=== PATIENT | female | born 1980 | race Caucasian/White ===

== ENCOUNTER → 2023-01-21 16:45 | Outpatient (CLI) | payer OTHER, MEDICAID, SELFPAY ==
[2023-01-21 18:12] LABS: Appearance Urine UA CLEAR; Bilirubin Urine UA NEGATIVE (NEGATIVE); Color Urine UA YELLOW; Glucose Urine UA NEGATIVE (Negative); Ketones Urine UA NEGATIVE (NEGATIVE); Leukocyte Esterase Urine UA NEGATIVE (NEGATIVE); Nitrite Urine UA NEGATIVE (Negative); Occult Blood Urine UA NEGATIVE (Negative); Protein Urine UA NEGATIVE (Negative); Urobilinogen Urine UA 0.2 E.U./dL (0.2)
[2023-01-21 18:17] LABS: pH Urine UA 6.5 (4.5-8.0)
[2023-01-21 18:21] LABS: Bacteria Urine None Seen; Culture Indicated Urine Cult Not Indicated; RBC Urine 0-1/HPF (0-5/HPF); Squamous Epithelial Cell Urine 0-1 /HPF (0-5/HPF); WBC Urine None Seen (0-5/HPF)
== END ==
PROVIDERS: Referring Provider Family Medicine; Visit Provider Family Medicine
DX: O26.899 Other specified pregnancy related conditions, unspecified trimester (principal); R30.0 Dysuria
CPT/HCPCS: 81001

== ENCOUNTER → 2023-02-16 13:16 | Outpatient (CLI) | payer OTHER, MEDICAID, SELFPAY ==
[2023-02-16 17:48] LABS: GTT (PREG) 1 Hour PP 50gm Dose 112 mg/dL (76-139)
[2023-02-16 19:30] LABS: Urine N gonorrhoeae NOT DETECTED
[2023-02-16 19:32] LABS: Urine Chlamydia NOT DETECTED
[2023-02-17 09:46] LABS: Varicella IgG Antibody 325 index (Immune >165)
== END ==
LOC: LAB 13:17
PROVIDERS: PCP Family Medicine; Referring Provider Family Medicine; Visit Provider Family Medicine
DX: Z36.9 Encounter for antenatal screening, unspecified (principal); Z34.80 Encounter for supervision of other normal pregnancy, unspecified trimester; Z34.01 Encounter for supervision of normal first pregnancy, first trimester
CPT/HCPCS: 36415; 82950; 86787; 87077; 87086; 87147; 87491; 87591

== ENCOUNTER 2023-03-08 10:19 | Outpatient (CLI) | payer OTHER, MEDICAID, SELFPAY ==
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
[2023-03-08 11:57] LABS: Appearance Urine UA CLEAR; Bilirubin Urine UA NEGATIVE (NEGATIVE); Color Urine UA YELLOW; Glucose Urine UA NEGATIVE (Negative); Ketones Urine UA TRACE (NEGATIVE); Leukocyte Esterase Urine UA TRACE (NEGATIVE); Nitrite Urine UA NEGATIVE (Negative); Occult Blood Urine UA NEGATIVE (Negative); Protein Urine UA NEGATIVE (Negative); Urobilinogen Urine UA 0.2 E.U./dL (0.2)
[2023-03-08 12:02] LABS: Bacteria Urine Few (2-10); RBC Urine 0-1/HPF (0-5/HPF); WBC Urine 1-5/HPF (0-5/HPF)
[2023-03-08 12:03] LABS: Culture Indicated Urine Specimen Cultured; Squamous Epithelial Cell Urine 1-5 /HPF (0-5/HPF)
--- NOTE | 2023-04-01 | DI.US.S_ITS ---
PROCEDURE: US ABDOMEN LIMITED INDICATIONS: RIGHT UPPER QUADRANT PAIN + UMBILICAL LUMP ?HERNIA TECHNIQUE: Real-time focused scanning was performed of the abdomen, with image documentation. COMPARISON: None. FINDINGS: Liver is normal in size and echotexture. No discrete hepatic lesion. A 6 x 4 x 7 mm stone is seen in neck of gallbladder. 4 x 3 x 3 mm polyp is noted in non dependent portion of gallbladder lumen. No gallbladder wall wall thickening or pericholecystic fluid. No sonographic Mejia sign. There is no intrahepatic biliary ductal dilatation. Common bile duct measures up to 3 mm in diameter and is within normal limits. Visualized portion of pancreas shows no gross abnormalities. 1.3 cm periumbilical hernia is seen with bowel loops seen herniating through the area of defect. No signs of incarcerated bowel loops. IMPRESSION: 1. Cholelithiasis and gallbladder polyps as above. No sonographic evidence of acute cholecystitis. No intra or extrahepatic biliary ductal dilatation. 2. Small periumbilical hernia containing bowel loops as described above. No signs of incarceration. Dictated by: Alex Fernandez M.D. on 04/01/2023 at 18:22 Approved by: Alex Fernandez M.D. on 04/01/2023 at 18:24
--- NOTE | 2023-04-01 14:43 | DI.US.S_ITS ---
PROCEDURE: US OB LIMITED INDICATIONS: PAIN. EVALUATE CERVICAL LENGTH OUTSIDE/PRIOR DATING DATA: Last menstrual period (LMP): 08/03/2022 LMP-based estimated date of delivery (ION): 05/10/2023 First dating scan (date and location): Unknown Estimated date of delivery (ION) from first dating scan: Unknown The calculations are made using the working ION of 05/10/2023. TECHNIQUE: Real-time scanning was performed of the fetus, with image documentation . Endovaginal scanning: Not indicated. COMPARISON: None. FINDINGS: General: A single living intrauterine gestation is present. Presentation: Vertex. Placenta: Placental position is anterior, without previa. Amniotic fluid index: 14.6 cm, normal range is 5-24 cm. Single deepest vertical pocket is 5.6 cm. heart rate: 137 beats per minute. Maternal cervical canal: 4.4 cm long. Normal lower limit is 2.5 cm. Clinically estimated gestational age: 34 weeks, 3 days IMPRESSION: 1. Single live intrauterine gestation with fetus in vertex presentation. heart rate is 137 beats per minute. Normal amount of amniotic fluid with COLLEEN measures 14.6 cm. Estimated gestational age is 34 weeks, 3 days. We strive to produce accurate, complete, and clear reports of imaging services. To assist us in improving patient care, this report was composed using standard report templates and voice recognition software. Therefore, it may contain abnormal punctuation, insertions and/or omissions. Occasional wrong-word or sound-alike substitutions may occur. Though we review the report and make efforts to correct it, we do recommend that the report be read carefully in proper context to recognize any text inaccuracies. Dictated by: Alex Fernandez M.D. on 04/01/2023 at 18:31 Approved by: Alex Fernandez M.D. on 04/01/2023 at 18:34
== END 2023-03-08 11:20 | disposition home or self-care (01) ==
LOC: LABOR 12:17 → OB 03-09 15:13
PROVIDERS: Family Medicine; PCP Family Medicine; Referring Provider Family Medicine; Visit Provider Family Medicine
DX: O36.5930 Maternal care for other known or suspected poor fetal growth, third trimester, not applicable or unspecified (principal); R10.31 Right lower quadrant pain; O09.523 Supervision of elderly multigravida, third trimester; Z3A.30 30 weeks gestation of pregnancy
CPT/HCPCS: 59025; 81003; 81015; 87077; 87086; 87147; G0378; G0379

== ENCOUNTER 2023-04-01 13:52 | Observation (INO) | payer OTHER, MEDICAID, SELFPAY ==
[2023-04-01 16:23] LABS: Appearance Urine UA CLEAR; Bilirubin Urine UA NEGATIVE (NEGATIVE); Color Urine UA YELLOW; Glucose Urine UA NEGATIVE (Negative); Ketones Urine UA NEGATIVE (NEGATIVE); Leukocyte Esterase Urine UA NEGATIVE (NEGATIVE); Nitrite Urine UA NEGATIVE (Negative); Occult Blood Urine UA NEGATIVE (Negative); Protein Urine UA NEGATIVE (Negative); Specific Gravity Urine UA <=1.005 (1.000-1.035); Urobilinogen Urine UA 0.2 E.U./dL (0.2)
[2023-04-01 16:35] LABS: Bacteria Urine None Seen; Culture Indicated Urine Cult Not Indicated; RBC Urine None Seen (0-5/HPF); Squamous Epithelial Cell Urine 0-1 /HPF (0-5/HPF); WBC Urine 0-1/HPF (0-5/HPF)
[2023-04-01 17:58] LABS: Add Manual Diff / Slide Review NO; Basophils Absolute Auto 0 /uL (0-100); Basophils Percent Auto 0.3 % (0-2); Eosinophils Absolute Auto 200 /uL (0-450); Eosinophils Percent Auto 1.7 % (2-4); Hematocrit 31.8 % (36-46); Hemoglobin 11.4 g/dL (12.0-16.0); Lymphocytes Absolute Auto 1000 /uL (1100-4500); Lymphocytes Percent Auto 10.4 % (25-40); Mean Corpuscular HGB Conc 35.9 % (30-36); Mean Corpuscular Hemoglobin 33.1 PG (26-34); Mean Corpuscular Volume 92.2 fL (80-100); Monocytes Absolute Auto 600 /uL (0-900); Monocytes Percent Auto 5.5 % (3-14); Neutrophils Absolute Auto 8300 /uL (1500-7000); Neutrophils Percent Auto 82.1 % (50-75); Platelet Count 153 X10^3/uL (150-400); Red Blood Cell Count 3.45 X10^6/uL (4.0-5.2); Red Cell Distribution Width 13.9 % (11.6-14.8); White Blood Cell Count 10.1 X10^3/uL (4.5-11.0)
[2023-04-01 18:07] LABS: Alanine Aminotransferase 16 IU/L (<35); Albumin 3.5 g/dL (3.5-5.0); Albumin Globulin Ratio 1.3 (1.0-2.8); Alkaline Phosphatase 71 U/L (38-126); Aspartate Aminotransferase 19 IU/L (14-36); BUN Creatinine Ratio 8.9 (6-22); Bilirubin Total 0.7 mg/dL (0.2-1.3); Blood Urea Nitrogen 7 mg/dL (7-17); Calcium 9.1 mg/dL (8.4-10.2); Carbon Dioxide 20 mmol/L (22-32); Chloride 103 mmol/L (98-107); Estimated Glomerular Filt Rate > 60 mL/min (>60); Globulin 2.8 g/dL (1.7-4.1); Glucose 96 mg/dL (70-100); HEMOLYSIS < 15 (0-50); Potassium 3.7 mmol/L (3.4-5.1); Sodium 131 mmol/L (137-145); Total Protein 6.3 g/dL (6.3-8.2)
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
== END 2023-04-01 18:40 | disposition home or self-care (01) ==
PROVIDERS: Admitting Provider Obstetrics & Gynecology; PCP Family Medicine; Referring Provider Obstetrics & Gynecology; Visit Provider Obstetrics & Gynecology
DX: O47.03 False labor before 37 completed weeks of gestation, third trimester (principal); O99.613 Diseases of the digestive system complicating pregnancy, third trimester; K80.20 Calculus of gallbladder without cholecystitis without obstruction; O26.893 Other specified pregnancy related conditions, third trimester; K42.9 Umbilical hernia without obstruction or gangrene; K59.00 Constipation, unspecified; Z3A.34 34 weeks gestation of pregnancy
CPT/HCPCS: 59025; 76705; 76815; 76817; 80053; 81001; 84112; 85025; G0378; G0379

== ENCOUNTER → 2023-04-22 16:57 | Outpatient (CLI) | payer OTHER, MEDICAID, SELFPAY | PROVIDERS: PCP Family Medicine; Visit Provider Family Medicine | DX: B00.9 Herpesviral infection, unspecified (principal) | CPT/HCPCS: 87081; 87147 ==

== ENCOUNTER 2023-04-29 13:09 | Outpatient (CLI) | payer OTHER, MEDICAID, SELFPAY ==
--- NOTE | 2023-04-29 13:14 | DI.US.S_ITS ---
PROCEDURE: US OB LIMITED INDICATIONS: BLEEDING WITH CLOTS - RULE OUT ABRUPTION OUTSIDE/PRIOR DATING DATA: Last menstrual period (LMP): 08/03/2022. LMP-based estimated date of delivery (ION): 05/10/2023. The calculations are made using the clinical ION of 05/10/2023. TECHNIQUE: Real-time scanning was performed of the fetus, with image documentation. Endovaginal scanning: Not performed COMPARISON: [facility], , OB LIMITED, 04/01/2023, 17:20. FINDINGS: A single living intrauterine gestation is present. Presentation: Vertex. Placenta: Placental position is anterior Amniotic fluid index: 16.0 cm, normal range is 5-24 cm. Single deepest vertical pocket is 5.0 cm. heart rate: 131 beats per minute. Maternal cervical canal: Not evaluated Clinically estimated gestational age: 38 weeks 3 days IMPRESSION: Single live intrauterine . No evidence of placental abruption peer Dictated by: Martin Corcoran M.D. on 04/29/2023 at 15:58 Approved by: Martin Corcoran M.D. on 04/29/2023 at 16:00
== END 2023-04-29 14:12 | disposition home or self-care (01) ==
LOC: LABOR 13:51 → OB 05-03 11:55
PROVIDERS: PCP Family Medicine; Referring Provider Family Medicine; Visit Provider Family Medicine
DX: Z36.9 Encounter for antenatal screening, unspecified (principal)
CPT/HCPCS: 59025; 76815; G0378; G0379

== ENCOUNTER 2023-05-03 15:50 | Inpatient (IN) | payer OTHER, MEDICAID, SELFPAY ==
[2023-05-03] MEDS: AMPICILLIN 2,000 MG in SODIUM CHLORIDE 0.9% 100 ML 200 MG IV (17:57)
[2023-05-03 18:05] LABS: Add Manual Diff / Slide Review NO; Basophils Absolute Auto 0 /uL (0-100); Basophils Percent Auto 0.2 % (0-2); Eosinophils Absolute Auto 100 /uL (0-450); Eosinophils Percent Auto 0.6 % (2-4); Hematocrit 32.2 % (36-46); Hemoglobin 11.2 g/dL (12.0-16.0); Lymphocytes Absolute Auto 1000 /uL (1100-4500); Lymphocytes Percent Auto 7.8 % (25-40); Mean Corpuscular HGB Conc 34.8 % (30-36); Mean Corpuscular Hemoglobin 32.6 PG (26-34); Mean Corpuscular Volume 93.4 fL (80-100); Monocytes Absolute Auto 600 /uL (0-900); Monocytes Percent Auto 4.7 % (3-14); Neutrophils Absolute Auto 11000 /uL (1500-7000); Neutrophils Percent Auto 86.7 % (50-75); Platelet Count 159 X10^3/uL (150-400); Red Blood Cell Count 3.44 X10^6/uL (4.0-5.2); Red Cell Distribution Width 13.6 % (11.6-14.8); White Blood Cell Count 12.7 X10^3/uL (4.5-11.0)
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
--- NOTE | 2023-05-03 21:54 | PM.OBPRVD ---
Labor & Delivery Delivery date: 05/03/23 Intrapartal Events: None Cervical ripening method: none Induction method: none Delivery monitor: external FHT Route of delivery: L&D Laceration Description: None Estimated blood loss (mL): 100 Anesthesia Type: None Narrative: Patient fully dilated at 2041 and began pushing. Spontaneous vaginal delivery of a viable female in the UMESH position occurred at 2044. The was suctioned and stimulated at the perineum, and gave appropriate cry with movement of all extremities immediately. Delayed cord clamping was observed beyond one minute per parental preference. Cord was clamped and cut and handed to mother for skin to skin. Cord blood and segment were obtained. The placenta was delivered without difficulty using gentle cord traction and found to be intact with a three-vessel cord. After fundal massage the uterus was firm and bleeding stopped. The vagina and cervix were examined with no lacerations noted. Patient stable. [place] Baby 1: gender: Female Presentation: vertex Position: Right Occiput Anterior Placenta delivery description: Spontaneous Cord Vessel Description: 3 Vessels score (1 min): 8 score (5 min): 9 weight: 6 lb 11.303 oz Plan for aftercare: Routine care
--- NOTE | 2023-05-04 20:15 | PM.OBDS.1 ---
Discharge Providers Provider Date of admission: 05/03/23 15:50 Discharge Date: 05/04/23 Primary care physician: Barrera Siddiqui MD Consults: 05/03/23 16:51 Consult to Anesthesiology Urgent Comment: Consulting Provider: Anesthesiologist Reason for consultation: Epidural Discharge provider: Barrera Siddiqui MD Summary Hospital Course Date Patient Seen: 05/04/23 Time Patient Seen: 13:15 Diagnoses: # #AMA Hospital Course: Admitted for normal labor on 05/03/2023. Progress adequately without augmentation to complete dilation over the course of 4 hours. Had uncomplicated of live female infant with no lacerations. Uncomplicated course. At discharge patient is ambulating well, tolerating normal diet, breast-feeding without difficulty, and pain is well controlled without medication. Reports bleeding is slightly heavier and normal menses without clots or large gushes. Mild cramping when she breastfeeds. Peripartum Data Infant Delivery Method: Natural Vaginal Laceration Description: None complications: none 1: Gender: Female Disposition of : home Discharge Diagnosis (1) (spontaneous vaginal delivery): Start Date: 05/03/23 Start Time: 20:45 Status: Acute (2) Advanced maternal age (AMA) in : Status: Chronic Status at Discharge Cognitive/behavioral status at discharge: oriented Functional status at discharge: independent ambulation Overall status at discharge: patient is back to baseline Time Spent with Patient Time attestation: Total time spent providing and/or coordinating discharge services: Time spent: Less than 30 minutes Objective Labs 05/03/23 17:30 Exam Narrative Exam Narrative: General: Well-appearing, well-nourished, no distress HEENT: Moist mucous membranes, no pallor CV: Regular rate and rhythm, no murmur auscultated Resp: CTAB, comfortable work of breathing Abdomen: Soft, bowel sounds present, fundus firm below umbilicus with appropriate tenderness Extremities: No edema, well-perfused, no calf tenderness or evidence of DVT Discharge Plan Discharge Plan Patient Disposition: Home Provider Discharge Comment: Follow up in 6 weeks for visit Discharge orders & Medications Prescriptions: Continued Classic 28 mg iron- 800 mcg tablet 1 tab PO DAILY Qty: 30 3RF Discontinued valacyclovir 500 mg tablet 500 mg PO BID Qty: 60 1RF aspirin 81 mg tablet,chewable 81 mg PO DAILY Qty: 30 3RF Follow up/Referrals: Barrera Siddiqui MD [Primary Care Provider] - 06/15/23 3:00 pm Diet/Activity/Treatments Diet: Regular Visit Report/Discharge Packet Instructions: DI for Hemorrhage Stand Alone Forms: Discharge: Care, Patient Portal/API, Stroke Signs & Symptoms Discharge Data Primary Care Provider: Barrera Siddiqui Discharges patient from system. Discharge Date/Time: 05/04/23 16:00
== END 2023-05-04 16:00 | disposition home or self-care (01) | DRG 560 ==
PROVIDERS: Admitting Provider Family Medicine; PCP Family Medicine; Referring Provider Family Medicine; Visit Provider Family Medicine
DX: O98.52 Other viral diseases complicating childbirth (principal); B00.9 Herpesviral infection, unspecified; Z3A.38 38 weeks gestation of pregnancy; Z37.0 Single live birth; O99.824 Streptococcus B carrier state complicating childbirth
CPT/HCPCS: 36415; 59050; 59409; 85025; 86850; 86900; 86901; G0379; J0290

== ENCOUNTER 2023-07-28 06:31 | Day surgery (SDC) | payer OTHER, MEDICAID, SELFPAY ==
[2023-07-26 12:09] VITALS: BMI 33.0
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
[2023-07-28] VITALS (8 sets, daily range): BP systolic 118–134; BP diastolic 79–86; PULSE 63–109; RESP 11–18; TEMP 36.2–36.9; O2SAT 96–99; BMI 32.4
--- NOTE | 2023-07-28 | PATH_ITS ---
[facility] Accession Number: [id number] No. of containers..01 Tissue . 01 Material submitted: . fallopian tube - BILATERAL FALLOPIAN TUBES, SALPINGECTOMY . 01 Diagnosis: BILATERAL FALLOPIAN TUBES, SALPINGECTOMY: Complete cross-section of bilateral fimbriated fallopian tubes with benign paratubal cyst. [facility] 08/03/2023 1212 Local . 01 Electronically signed: . Debbie Bar MD, Pathologist NPI- [id number] . 01 Gross description: . The specimen is received in formalin, labeled with the patient's name, , and bilateral fallopian tubes, and consists of two unoriented, fimbriated fallopian tubes measuring 7.1 x 0.6 cm and 6.8 x 0.7 cm, respectively. Both tubes have violaceous, smooth serosa with cystic structures ranging from 0.1 to 0.4 cm in greatest dimension filled with clear serous fluid. Sectioning reveals unremarkable stellate lumen. Academic Specialist sections to include one-half of bisected fimbriae and cross sections are submitted as follows: . A1: Longer fallopian tube. A2: [place] fallopian tube. ([id number]) /MRV 08/03/2023 1212 Local . 01 Pathologist provided ICD-10: Z30.2 . 01 CPT . 805146 Specimen Comment: A courtesy copy of this report has been sent to [phone] Performed at: [facility] [address] [place] [id number] MD Garcia Thorne MD Phone: [phone]
--- NOTE | 2023-07-28 07:47 | PM.PREOP ---
Pre-operative Note COVID-19 COVID-19 status: Not tested Interval Note History & Physical reviewed/Exam performed by Physician: Yes Changes to H&P: No
[2023-07-28] MEDS: CEFAZOLIN 2 GM/100 ML PREMIX 100 ML IV (07:59)
--- NOTE | 2023-07-28 08:34 | SUR.OPER ---
Lithotomy on padded OR bed, head on pillow, arms secured on padded arm boards at <90 degrees abduction. Legs secured in padded yellow fins stirrups.
[2023-07-28] MEDS: BUPIVACAINE 0.5% (PF) 30 ML, EPINEPHrine 0.15 MG INJ (08:47)
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
--- NOTE | 2023-07-28 09:36 | PM.OP.1 ---
Operative Date/Time/Diagnoses Date of procedure: 07/28/23 Time of procedure: 09:36 Pre-op diagnosis: umbilical hernia Post-op diagnosis: same Procedure & Clinicians Procedure: open umbilical hernia repair with mesh Same procedure as scheduled: Yes Indications: symptomatic reducible umbilical hernia Surgeon: Calvin Purcell Regulatory Technician: Manuel Ruiz Anesthesia Type: General Operative Notes Findings: 2 cm fascial defect at umbilicus Specimen(s): none sent Estimated Blood Loss (mL): 5 Procedure in detail: Patient was brought to the operating room placed supine on the table. Bilateral lower extremity compression devices were applied. General anesthesia was induced and they were intubated with a endotracheal tube. They received 2 g of Ancef prior to skin incision. They were prepped and draped in sterile fashion. A time-out was performed. Dr. Blackburn performed a laparoscopic tubal ligation. Using the infraumbilical laparoscopic port incision the umbilical hernia was identified and the hernia sac was dissected off the umbilical skin and circumferentially off of the fascia defect. The omentum was reduced back into the abdomen. The fascia defect was 2 cm in maximal diameter. A Bard Ventralex ST hernia patch 4 cm was inserted beneath the fascia defect in a sublay position with the anti-adhesive surface towards the abdomen. The mesh was anchored in multiple locations using Ethibond suture to the fascia and the fascial defect was closed over the mesh. The umbilical skin was tacked to the subcutaneous tissues and then the remainder of the subcutaneous tissues were reapproximated using 3 0 Vicry,l skin closed with 4 0 Monocryl followed by the application of Dermabond. Sponge instrument count at the end of the operation was correct. Patient tolerated procedure well was extubated and transferred to postoperative care unit in stable condition. Complications: none Post-operative Condition: stable Disposition: same day surgery
[2023-07-28] MEDS: OXYCODONE IR 5 MG TABLET PO (09:52)
== END 2023-07-28 11:00 | disposition home or self-care (01) ==
PROVIDERS: Surgery; Referring Provider Obstetrics & Gynecology; Visit Provider Obstetrics & Gynecology
PROC: 0UT74ZZ Resection of Bilateral Fallopian Tubes, Percutaneous Endoscopic Approach (ICD-10-PCS; CPT 58661; principal; 2023-07-28 07:45)
PROC: (CPT 49591; 2023-07-28 07:45)
DX: Z30.2 Encounter for sterilization (principal); K42.9 Umbilical hernia without obstruction or gangrene
CPT/HCPCS: 49591; 58661; J0171; J0330; J0690; J1100; J1885; J2405; J2704; J3010

== ENCOUNTER → 2023-10-15 09:28 | Outpatient (CLI) | payer OTHER, MEDICAID, SELFPAY ==
--- NOTE | 2023-10-15 09:29 | DI.US.S_ITS ---
LIMITED ULTRASOUND OF RIGHT BREAST: 10/15/2023 CLINICAL: Palpable right breast lump. Comparison is made to exam dated: 10/15/2023 mammogram - [facility]. Color flow and real-time ultrasound of the right breast 11 o'clock region were performed. Estrada scale images of the real-time examination were reviewed. No significant abnormalities were seen sonographically in the right breast in the region of pain. No mass, cyst, or galactocele. IMPRESSION: NEGATIVE There is no sonographic evidence of malignancy. A 1 year screening mammogram is recommended. Exam findings were conveyed to the patient. Patient is advised to monitor for significant change. Clinical follow-up as needed. This exam was interpreted at Station ID: [id number]. Electronically Signed By: Juan Quinones M.D. slc/:10/15/2023 10:55:59 letter sent: Normal Exam Ultrasound BI-RADS: 1 Negative
--- NOTE | 2023-10-15 09:29 | DI.MG.S_ITS ---
BILATERAL DIGITAL DIAGNOSTIC MAMMOGRAM 3D/2D: 10/15/2023 CLINICAL: Right breast lump. Baseline exam. No prior exams were available for comparison. Both breasts are heterogeneously dense, which may obscure small masses (category c / 51-75% glandular tissue). No significant masses, calcifications, or other findings are seen in either breast. IMPRESSION: INCOMPLETE: NEEDS ADDITIONAL IMAGING EVALUATION No mammographic evidence of malignancy. A targeted ultrasound is recommended and will immediately follow. Based on the Tyrer Cuzick model (a risk assessment model) the patient's lifetime risk is 14.2% and her 10 year risk is 1.8%. According to the ACR, ACS, and NCCN guidelines, an annual breast MRI exam along with mammogram is recommended if the patient's lifetime risk is 20% or greater. This exam was interpreted at Station ID: [id number]. NOTE: For mammograms, a report in lay terms will be sent to the patient. Approximately 15% of breast malignancies will not be visualized mammographically. In the management of a palpable breast mass, a negative mammogram must not discourage biopsy of a clinically suspicious lesion. Electronically Signed By: Juan Quinones M.D. slc/:10/15/2023 10:10:19 ACR BI-RADS Category 0: Incomplete [id number]
== END ==
PROVIDERS: PCP Family Medicine; Referring Provider Family Medicine; Visit Provider Family Medicine
DX: R92.2 Inconclusive mammogram (principal); N64.4 Mastodynia; R92.333 Mammographic heterogeneous density, bilateral breasts
CPT/HCPCS: 76642; 77066; G0279

== ENCOUNTER → 2024-05-04 12:38 | Outpatient (CLI) | payer OTHER, SELFPAY ==
[2024-05-04 13:04] LABS: Add Manual Diff / Slide Review NO; Basophils Absolute Auto 0 /uL (0-100); Basophils Percent Auto 0.4 % (0-2); Eosinophils Absolute Auto 0 /uL (0-450); Eosinophils Percent Auto 0.4 % (2-4); Hematocrit 39.6 % (36-46); Hemoglobin 13.3 g/dL (12.0-16.0); Lymphocytes Absolute Auto 1000 /uL (1100-4500); Lymphocytes Percent Auto 13.4 % (25-40); Mean Corpuscular HGB Conc 33.5 % (30-36); Mean Corpuscular Hemoglobin 30.4 PG (26-34); Mean Corpuscular Volume 90.7 fL (80-100); Monocytes Absolute Auto 300 /uL (0-900); Monocytes Percent Auto 4.8 % (3-14); Neutrophils Absolute Auto 5900 /uL (1500-7000); Platelet Count 216 X10^3/uL (150-400); Red Blood Cell Count 4.36 X10^6/uL (4.0-5.2); Red Cell Distribution Width 13.7 % (11.6-14.8); White Blood Cell Count 7.3 X10^3/uL (4.5-11.0)
[2024-05-04 13:19] LABS: Iron 91 ug/dL (37-170)
[2024-05-04 13:27] LABS: Alanine Aminotransferase 22 IU/L (<35); Albumin 4.7 g/dL (3.5-5.0); Albumin Globulin Ratio 2.1 (1.0-2.8); Alkaline Phosphatase 55 U/L (38-126); Aspartate Aminotransferase 24 IU/L (14-36); BUN Creatinine Ratio 20.7 (6-22); Bilirubin Total 0.7 mg/dL (0.2-1.3); Blood Urea Nitrogen 19 mg/dL (7-17); Calcium 9.5 mg/dL (8.4-10.2); Carbon Dioxide 25 mmol/L (22-32); Chloride 106 mmol/L (98-107); Cholesterol 155 mg/dL (140-199); Creatine Kinase 50 U/L (30-135); Estimated Glomerular Filt Rate > 60 mL/min (>60); Globulin 2.2 g/dL (1.7-4.1); Glucose 94 mg/dL (70-100); HDL Cholesterol 85 mg/dL (40-60); HEMOLYSIS < 15 (0-50); LDL Cholesterol Calculated 52 mg/dL (<100); Potassium 4.1 mmol/L (3.4-5.1); Sodium 137 mmol/L (137-145); Total Protein 6.9 g/dL (6.3-8.2); Triglycerides 90 mg/dL (35-150)
[2024-05-04 13:30] LABS: Percent Iron Saturation 35 % (15-50); Total Iron Binding Capacity 257 ug/dL (265-497); Transferrin 232 mg/dL (206-381)
[2024-05-04 13:35] LABS: Troponin I < 0.012 ng/mL (0.01-0.034)
[2024-05-04 13:51] LABS: TSH w/ Reflex to FT4 5.06 uIU/mL (0.47-4.68)
[2024-05-04 13:58] LABS: Ferritin 39 ng/mL (6-137)
[2024-05-04 14:38] LABS: Free T4, Direct Thyroxine 0.83 ng/dL (0.78-2.19); HEMOLYSIS 17 (0-50)
[2024-05-04 17:25] LABS: Appearance Urine UA CLEAR; Bilirubin Urine UA NEGATIVE (NEGATIVE); Color Urine UA YELLOW; Glucose Urine UA NEGATIVE (Negative); Ketones Urine UA NEGATIVE (NEGATIVE); Leukocyte Esterase Urine UA NEGATIVE (NEGATIVE); Nitrite Urine UA NEGATIVE (Negative); Occult Blood Urine UA NEGATIVE (Negative); Protein Urine UA NEGATIVE (Negative); Urobilinogen Urine UA 0.2 E.U./dL (0.2)
[2024-05-04 18:01] LABS: pH Urine UA 5.5 (4.5-8.0)
== END ==
PROVIDERS: PCP Family Medicine; Referring Provider Family Medicine; Visit Provider Family Medicine
DX: R07.89 Other chest pain (principal); Z77.29 Contact with and (suspected) exposure to other hazardous substances; R00.2 Palpitations; Z13.220 Encounter for screening for lipoid disorders; R30.0 Dysuria
CPT/HCPCS: 36415; 80053; 80061; 81003; 82550; 82728; 83540; 83550; 84439; 84443; 84484; 85025